=== PATIENT | male | born 2005 | race Caucasian/White ===

== ENCOUNTER 2023-08-30 06:19 | Emergency (ER) | payer BC ==
[~2023-08-30] VITALS: Ht 190.5 cm; Wt 84.0 kg
[2023-08-30 06:24] VITALS: O2SAT 99
[2023-08-30] MEDS ORDERED: KETOROLAC 30MG/ML VIAL IV STA (06:40)
[2023-08-30] MEDS ORDERED: ACETAMINOPHEN 325MG TABLET PO STA (06:40)
[2023-08-30] MEDS ORDERED: SODIUM CHLORIDE 0.9% 1,000 ML IV ONE ×2 (06:45)
[2023-08-30] MEDS ORDERED: ACETAMINOPHEN 325MG TABLET PO SCH (09:15)
[2023-08-30] MEDS ORDERED: KETOROLAC 30MG/ML VIAL IV SCH (09:15)
[2023-08-30 10:06] LABS: BASOPHILS % 0.2 % (0.0-2.0); HEMATOCRIT. 44.7 % (42.0-52.0); HEMOGLOBIN. 14.7 g/dL (14.0-18.0); LYMPHOCYTES % 12.4 % (20.0-50.0); MEAN CORPUSCULAR VOLUME 84.8 fL (80.0-94.0); MEAN PLATELET VOLUME 7.7 fl (7.4-10.4); MONOCYTES % 11.1 % (2.0-8.0); NEUTROPHILS % 76.3 % (40.0-76.0); PLATELET 145 x1000/uL (130-400); RED BLOOD CELL COUNT 5.27 mill/uL (4.7-6.1); RED CELL DISTRIBUTION WIDTH 13.1 % (11.6-14.6)
[2023-08-30 10:29] LABS: ALANINE AMINOTRANSFERASE 17 IU/L (10-49); ALBUMIN 3.8 g/dL (3.2-4.8); ASPARTATE AMINOTRANSFERASE 25 IU/L (<34); BILIRUBIN TOTAL 0.6 mg/dL (0.1-1.0); CALCIUM 8.4 mg/dL (8.7-10.4); CARBON DIOXIDE 24 mEq/L (21-32); CHLORIDE 100 mEq/L (98-107); CREATININE 1.3 mg/dL (0.6-1.3); GLUCOSE 99 mg/dL (70-105); POTASSIUM 3.5 mEq/L (3.5-5.1); SODIUM 134 mEq/L (136-145); TROPONIN I HIGH SENSITIVITY 5 ng/L (3.0-53); UREA NITROGEN BLOOD 20 mg/dL (9-23)
[2023-08-30 12:28] VITALS: BP 121/67; PULSE 67; RESP 12; TEMP 98.2
[2023-08-30] MEDS ORDERED: IBUP-2029 MT (12:34)
== END 2023-08-30 15:45 | disposition home or self-care (01) ==
LOC: ER 06:37
DX: R55 Syncope and collapse (principal); R50.9 Fever, unspecified; Z20.822 Contact with and (suspected) exposure to COVID-19
CPT/HCPCS: 80053; 87430; 85025; 84484; 87070; 87804 ×2; 36415; 71045; 93005; 96361; 96374; 99285; 87426; J1885; J7030; C9803; Z7610 ×5